=== PATIENT | female | born 1990 | race African-American/Black ===

== ENCOUNTER → 2017-02-05 | Outpatient (CLI) | payer MEDICARE, MEDICAID ==
[~2017-02-05] MED LIST: ABILIFY; CATHETER FLUSH 10 ML SYR IV PRN; IOHEXOL 350 MG/ML 100 ML (OMNIPAQUE 350) VIAL IV ONE; NAPR-243 PO; NS 100 ML (IVPB) BAG IV ONE; TOPAMAX; VYVANCE
--- NOTE | 2017-02-05 11:34 | Diagnostic Imaging Report ---
PROCEDURE: CT head with and without contrast. TECHNIQUE: Multiple contiguous axial images were obtained through the brain before and after the administration of intravenous contrast. INDICATION: Headache. 80 mL of Omnipaque 350 is administered intravenously. FINDINGS: The unenhanced phase demonstrates no intracranial hemorrhage. The brain parenchyma appears unremarkable with preserved lou-white matter differentiation. No edema or enhancing mass is seen. The lateral ventricles are normal in size. There is no extra-axial fluid collection seen. The central vascular enhancement is grossly unremarkable. There is a suggestion of slight cerebellar tonsillar descent into the foramen magnum probably around 5 mm compatible with cerebellar tonsillar ectopia. When correlated with MRI of 05/14/2012 only minimal the cerebellar tonsillar ectopia is seen. This is probably an incidental finding. This results in slightly crowded appearance of the structures in the foramen magnum level. The calvarium, the paranasal sinuses and orbits appear grossly unremarkable. IMPRESSION: No intracranial hemorrhage or enhancing mass. 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 Dictated by: Dictated on workstation # [id number]
== END ==
LOC: RAD 09:59
PROVIDERS: ATTEND Nurse Practitioner Community Health
DX: G43.119 Migraine with aura, intractable, without status migrainosus (principal)
CPT/HCPCS: 70470

== ENCOUNTER → 2017-04-14 | Outpatient (CLI) | payer MEDICARE, MEDICAID ==
[~2017-04-14] MED LIST changes: -CATHETER FLUSH 10 ML SYR IV PRN; -IOHEXOL 350 MG/ML 100 ML (OMNIPAQUE 350) VIAL IV ONE; -NS 100 ML (IVPB) BAG IV ONE
--- NOTE | 2017-04-14 13:42 | Diagnostic Imaging Report ---
PROCEDURE: US PELVIC (NON OB) TECHNIQUE: Multiple real-time grayscale images were obtained over the pelvis in various projections transabdominally. INDICATION: Irregular cycles. COMPARISON: There are no prior studies available for comparison. FINDINGS: The uterus is nongravid and not enlarged measuring 8.7 x 5.5 x 5.1 cm. The endometrial lining is thickened measuring 12 mm (normal 5 mm or less). This finding is nonspecific, however. Correlation with the patient's menstrual cycle would be recommended. There is no focal mass involving the uterus to suggest a fibroid. The ovaries were not identified as the adnexal regions were obscured by bowel gas. There is no solid pelvic mass or free fluid collection identified. The patient declined the transvaginal probe. IMPRESSION: 1. There is no acute pelvic abnormality identified, although the adnexal regions were not well visualized due to overlying bowel gas. If clinical concern regarding an acute abnormality persists, then CT should be considered for further study. 2. The uterus is nongravid and not enlarged. Dictated by: Dictated on workstation # [id number]
== END ==
LOC: RAD 11:23
PROVIDERS: ATTEND Nurse Practitioner Family
DX: N92.6 Irregular menstruation, unspecified (principal)
CPT/HCPCS: 76856

== ENCOUNTER → 2018-05-24 | Outpatient (CLI) | payer MEDICARE, MEDICAID ==
--- NOTE | 2018-05-24 16:05 | Diagnostic Imaging Report ---
PROCEDURE: US PELVIC (NON OB), TECHNIQUE: Multiple real-time grayscale images were obtained over the pelvis in various projections transabdominally. INDICATION: Pelvic pain. FINDINGS: The uterus measures 8.6 x 4.6 x 5.1 cm. Endometrial thickness is 1.2 cm. There are no discrete myometrial or endometrial masses. Both ovaries are normal in size and morphology and demonstrate normal blood flow. There is a small complex cyst superior to the right ovary measuring 1.9 cm. There are no other adnexal masses. There is no free pelvic fluid. IMPRESSION: 1.9 cm complex cyst in the right ovary likely a hemorrhagic cyst. Thickening of the endometrium up to 1.2 cm presumably reflecting the proliferative phase of the patient's menstrual cycle. Recommend clinical correlation. Dictated by: Dictated on workstation # [id number]
== END ==
LOC: RAD 13:19
PROVIDERS: ATTEND Nurse Practitioner Primary Care
DX: N83.201 Unspecified ovarian cyst, right side (principal); R93.8 Abnormal findings on diagnostic imaging of other specified body structures
CPT/HCPCS: 76856